=== PATIENT | male | born 1960 | race Caucasian/White ===

== ENCOUNTER 2016-12-04 15:39 | Emergency (ER) | payer OTHER ==
--- NOTE | 2016-12-04 16:24 | ERNOTE ---
Medical Problem HPI - Narrative Date of Service: 12/04/16 - General Chief Complaint: General Assessment Time Seen by Provider: 12/04/16 16:14 Source: patient Exam Limitations: no limitations - Immun/Allergies/Home Medications Immunizations: IMMUNIZATION HX Immunizations Up to Date Yes History of Influenza Vaccine No Hx Pneumococcal Vaccination No Allergies/Adverse Reactions: Allergies No Known Allergies Allergy (Verified 12/04/16 15:50) Home Medications: HOME MEDICATIONS Omeprazole Magnesium [Prilosec Otc] 20 mg PO DAILY 12/29/12 [Last Taken Unknown] Albuterol Sulfate [Proair Hfa] 2 puff IH Q4H PRN 03/08/14 [Last Taken Unknown] Atenolol [Tenormin] 50 mg PO DAILY #30 tablet 03/11/15 [Last Taken Unknown] amLODIPine BESYLATE [Norvasc] 5 mg PO DAILY #30 tablet 03/11/15 [Last Taken Unknown] - History of Present History Narrative: This is a 56-year-old male with a history of tobacco abuse, high blood pressure , high cholesterol. He has no history of diabetes. No family history of early cardiac disease. He comes to the emergency room on the advice of his physician. Last night at work, roughly 3:00 this morning, he had approximately 15 minutes of substernal chest pain associated with nausea and diaphoresis. There was no radiation down his arm. It resolved spontaneously. It is not recurred since then. The patient says that in the past he has had chest pains which radiate down his left arm. They have occurred always while he is at home laying in bed. They always go away within 15 minutes. He has not discussed this with his doctor. The patient has no history of cardiac disease that he is aware of. Again he has been completely asymptomatic for the last 8 hours Timing: gone now Severity: moderate Modifying Factors - (Improves): Present: other - nothing Modifying Factors - (Worsens): Present: other - nothing Review of Systems - Narrative Narrative: Please see history of present illness. The remainder of the review of systems is negative. - Review of Systems Constitutional: Present: diaphoresis, other - questionable diaphoresis. Absent : fever, chills, weakness, fatigue, malaise EYE: Present: no symptoms reported ENT: Present: no symptoms reported Respiratory: Present: no symptoms reported. Absent: shortness of breath, cough Cardiology: Present: chest pain Gastrointestinal/Abdominal: Present: nausea Genitourinary: Present: no symptoms reported Musculoskeletal: Present: no symptoms reported Skin: Present: no symptoms reported Neurological: Present: no symptoms reported Endocrine: Present: no symptoms reported Hematologic/Lymphatic: Present: no symptoms reported Psych: Present: no symptoms reported All Other Systems: All systems neg except as marked - Patient's Past Medical History Patient History - Medical: GERD Patient History - Cardiac/Respiratory: COPD, Hypertension Patient History - Cancer: No Hx of Cancer Patient History - Surgical Procedures: No surgical history Patient History - Other: None - Social History Living Situations: spouse Abuse History: No History of abuse Psych History: No pertinent hx Smoking Status: Current every day smoker Alcohol Use: occasionally Drug Use: none - Immunizations Immunizations Up to Date: Yes Hx Pneumococcal Vaccination: No History of Influenza Vaccine: No Physical Exam - Physical Exam General Appearance: Present: wd/wn, alert, no apparent distress Eye Exam: Normal inspection: bilateral, PERRL: bilateral, EOMI: bilateral Ears, Nose, Throat: Present: normal ENT inspection Neck: Present: normal inspection, nontender Respiratory: Present: no respiratory distress, normal breath sounds, no accessory muscle use, chest nontender, lungs clear Cardiovascular/Chest: Present: regular rate, rhythm, no murmur, normal peripheral pulses Peripheral Pulses: N=norm/S=strong/W=weak/B=bound/A=absent: Radial (R): Normal, Radial (L): Normal Gastrointestinal/Abdominal: Present: normal bowel sounds, nontender, nondistended, soft, no organomegaly Back Exam: Present: normal inspection, normal range of motion, no CVA tenderness Extremity Exam: Present: normal inspection, normal range of motion Neurological Exam: Present: alert, oriented, normal mood/affect, no motor/ sensory deficits Skin Exam: Present: normal color Lymphatic Exam: Present: no adenopathy ED Progress - Results and Orders Patient's Lab Results:: I have reviewed the patient's lab results. - Vital Signs Patient's Vital Signs:: I have reviewed the patient's vital signs. Vital Signs: Vital Signs 12/04/16 12/04/16 15:41 16:00 Temperature 36.6 C Pulse Rate 66 63 Respiratory 16 14 Rate Blood Pressure 138/73 141/63 O2 Sat by Pulse 95 93 Oximetry - EKG EKG: NSR EKG read: Interp. by me EKG Comments: Normal sinus rhythm, normal axis, normal intervals, no ST segment changes no abnormal T waves. Normal EKG. - Progress/Reassessment Chief Complaint: General Assessment Progress:: Unchanged Plan - Plan Plan: The patient had 15 minutes of chest pain at 3:00 this morning. He has no chest pain at present. He has had chest pain in the past which always occurs at rest. He has no elevation of his cardiac enzymes. He does not have acute coronary syndrome. The possibility of unstable angina is considered. The patient has no symptoms when he exerts himself. These symptoms seem to come on rarely. Although it did have a fairly classic description, he has no symptoms at present with a normal EKG and normal labs. I would put him at low probability. He does need outpatient stress testing. I'm discussing this with him. He is aware he needs to follow-up with his family doctor to get this done. I've explained at length to the patient that I'm not giving him a completely clean bill of health with regards to his heart. He knows that he needs to follow-up with his family doctor to get the stress test, and he is aware that if he has any recurrence of any symptoms that he had earlier such as chest pain , nausea, diaphoresis, radiation down his left arm, shortness of breath, or anything else concerning he needs to return immediately to the emergency department. His verbalized understanding. Departure - Departure Clinical Impression: Chest pain of uncertain etiology Disposition: Home self-care Condition: Stable Instructions: Nonspecific Chest Pain, [id number] Additional Instructions: As we discussed the labs and tests done here in the emergency room did not show any significant abnormalities. This is not a completely clean bill of health for your heart. He did talk to her family doctor about getting an outpatient stress test performed. If you have recurrence of any concerning symptoms return immediately to the emergency department. I want you to stop smoking. He did take a single full-size aspirin every day. Referrals: Cherie Martínez FNP [Primary Care Provider] -
[2016-12-04 16:37] LABS: Hematocrit 42.5 % (42.0-52.0); Hemoglobin 15.1 gm/dL (13.5-18.0); Mean Cell Volume 90.8 fl (78-100); Mean Corpuscular Hemoglobin 32.3 pg (27-31); Mean Corpuscular Hgb Conc 35.5 g/dl (32-36); Mean Platelet Volume 10.5 fl (6.0-9.5); Neutrophil # 4.4 K/mm3 (1.3-6.0); Neutrophil % 55.1 % (42-75.0); Platelet Count 218 K/mm3 (150-450); Red Blood Count 4.68 M/mm3 (4.7-6.0); Red Cell Distribution Width 12.3 % (11.5-14.0); White Blood Count 7.9 K/mm3 (4.0-10.5)
[2016-12-04 16:53] LABS: BUN/Creatinine Ratio 15.7 (9.0-21.6); Blood Urea Nitrogen 18 mg/dL (6-23); Calcium * 9.4 mg/dL (7.9-10.9); Carbon Dioxide 26.5 mmol/L (24-32.6); Chloride 101 mmol/L (97-106); Glucose * 136 mg/dL (70-110); Potassium 3.5 mmol/L (3.4-4.6); Sodium 138 mmol/L (132-142)
[2016-12-04 16:54] LABS: Troponin I Less than 0.017 ng/ml (0.00-0.10)
[2016-12-04 17:14] VITALS: BP 121/56
== END 2016-12-04 17:13 | disposition home or self-care (01) ==
LOC: ER 15:39
DX: R07.9 Chest pain, unspecified (principal); Z72.0 Tobacco use; I10 Essential (primary) hypertension; K21.9 Gastro-esophageal reflux disease without esophagitis; J44.9 Chronic obstructive pulmonary disease, unspecified

== ENCOUNTER 2017-03-04 05:21 | Emergency (ER) | payer OTHER ==
--- NOTE | 2017-03-04 05:51 | ERNOTE ---
Chest Pain/Cardiac HPI Time Seen by Provider: 03/04/17 05:44 Source: patient Exam Limitations: no limitations Immunizations: IMMUNIZATION HX Immunizations Up to Date Yes History of Influenza Vaccine No Hx Pneumococcal Vaccination No Allergies/Adverse Reactions: Allergies No Known Allergies Allergy (Verified 03/04/17 05:46) Home Medications: HOME MEDICATIONS Omeprazole Magnesium [Prilosec Otc] 20 mg PO DAILY 12/29/12 [Last Taken Unknown] Albuterol Sulfate [Proair Hfa] 2 puff IH Q4H PRN 03/08/14 [Last Taken Unknown] Atenolol [Tenormin] 50 mg PO DAILY #30 tablet 03/11/15 [Last Taken Unknown] amLODIPine BESYLATE [Norvasc] 5 mg PO DAILY #30 tablet 03/11/15 [Last Taken Unknown] clonazePAM [Klonopin] 1 mg PO BID 03/04/17 [Last Taken Unknown] Narrative: Pt reports left arm aching for one week. Nothing improves the pain, he has trouble sleeping due to the pain. worsened tonight while at work and he presented to the ED after getting off work this morning Timing: constant Severity/Quality: moderate, severe, aching Location: other - left arm Activities at Onset: none Modifying Factors - Improves: Present: nothing Modifying Factors - Worsens: Present: exercise Nitro Today/Relief: no nitro taken today Prior Chest Pain/Cardiac Workup: Reports: prior chest pain - about a month ago and was given medication for anxiety which helps for about 8 hours at a time Review of Systems - Review of Systems Constitutional: Present: diaphoresis - with chest pain a month ago EYE: Present: no symptoms reported ENT: Present: no symptoms reported Respiratory: Absent: shortness of breath Cardiology: Present: chest pain - relieved by anxiety medication, edema - increased over the past month, mostly on weekends. Gastrointestinal/Abdominal: Present: no symptoms reported Genitourinary: Present: no symptoms reported Musculoskeletal: Absent: back pain, neck pain Skin: Absent: rash Neurological: Present: no symptoms reported. Absent: numbness, tingling Endocrine: Present: no symptoms reported Hematologic/Lymphatic: Present: no symptoms reported Psych: Present: no symptoms reported - Patient's Past Medical History Patient History - Medical: Anxiety, GERD Patient History - Cardiac/Respiratory: COPD, Hypertension Patient History - Cancer: No Hx of Cancer Patient History - Surgical Procedures: No surgical history Patient History - Other: None - Family History Mother Family History - Medical: Family History - Cancer: Brain - Social History Living Situations: home Abuse History: No History of abuse Psych History: Hx of Anxiety Smoking Status: Current every day smoker Have you smoked in the past 12 months: Yes Do you dip or chew tobacco: No Alcohol Use: occasionally Drug Use: none - Immunizations Immunizations Up to Date: Yes Hx Pneumococcal Vaccination: No History of Influenza Vaccine: No Physical Exam - Physical Exam General Appearance: Present: wd/wn, alert, no apparent distress Head Exam: Present: normal inspection, no evidence of injury Eye Exam: Normal inspection: bilateral, PERRL: bilateral Neck: Present: normal inspection, nontender, supple, full range of motion Respiratory: Present: no respiratory distress, normal breath sounds, lungs clear Cardiovascular/Chest: Present: regular rate, rhythm, no murmur, normal peripheral pulses Back Exam: Present: normal inspection, normal range of motion, no vertebral tenderness Extremity Exam: Present: normal inspection, non-tender, normal range of motion, no edema Neurological Exam: Present: alert, oriented, normal mood/affect, no motor/ sensory deficits Skin Exam: Present: normal color, warm/dry Lymphatic Exam: Present: no adenopathy ED Progress - Results and Orders Patient's Lab Results:: I have reviewed the patient's lab results. Results and Orders: Laboratory Tests 03/04/17 03/04/17 05:57 05:57 WBC 7.1 Hgb 15.2 Hct 42.6 Plt Count 217 Sodium 139 Potassium 3.6 Chloride 102 Carbon Dioxide 27.5 BUN 16 Creatinine 1.03 Random Glucose 162 H Calcium 9.0 Total Bilirubin 0.3 AST 57 H ALT 143 H Alkaline Phosphatase 72 Troponin I 0.907 H* Total Protein 7.7 Albumin 4.0 - Vital Signs Patient's Vital Signs:: I have reviewed the patient's vital signs. Vital Signs: Vital Signs 03/04/17 05:25 Temperature 36.6 C Pulse Rate 60 Respiratory 12 Rate Blood Pressure 150/76 O2 Sat by Pulse 96 Oximetry - EKG EKG: NSR EKG read: Interp. by me EKG Comments: inverted T waves lead III. - X-Ray X-Ray #1 X-Ray: chest Interpretation: Interp. by me X-ray Comments: Nothing acute - Progress/Reassessment Progress:: Unchanged Progress Note-Subjective: 03/04/17 06:53 Spoke with the patient about the elevated troponin, he agrees with plan to transfer to [facility] for further evaluation. Spoke with Dr. Moseley at [facility] ED, he agrees to accept the patient in transfer and admit to hospitalist if he deems necessary and the hospitalist will decide if cardiology should be consulted. Departure Clinical Impression: Non-STEMI (non-ST elevated myocardial infarction) - Departure Disposition: [facility] Condition: Good Referrals: Yusra Recinos DO [Primary Care Provider] -
[2017-03-04 06:00] LABS: Hematocrit 42.6 % (42.0-52.0); Hemoglobin 15.2 gm/dL (13.5-18.0); Mean Cell Volume 90.1 fl (78-100); Mean Corpuscular Hemoglobin 32.1 pg (27-31); Mean Corpuscular Hgb Conc 35.7 g/dl (32-36); Mean Platelet Volume 10.4 fl (6.0-9.5); Neutrophil # 3.6 K/mm3 (1.3-6.0); Neutrophil % 50.3 % (42-75.0); Platelet Count 217 K/mm3 (150-450); Red Blood Count 4.73 M/mm3 (4.7-6.0); Red Cell Distribution Width 12.1 % (11.5-14.0); White Blood Count 7.1 K/mm3 (4.0-10.5)
[2017-03-04 06:26] LABS: Anion Gap 13.1 mmol/L (6.8-13.8); BUN/Creatinine Ratio 15.5 (9.0-21.6); Bilirubin, Total 0.3 mg/dL (0.0-1.1); Ca. Corrected For Albumin 8.7 mg/dL (8.4-10.2); Carbon Dioxide 27.5 mmol/L (24-32.6); Potassium 3.6 mmol/L (3.4-4.6); Total Protein 7.7 gm/dL (6.2-8.2)
[2017-03-04 06:27] LABS: Troponin I 0.907 ng/ml (0.00-0.10)
[2017-03-04] MEDS ORDERED: ASPIRIN 81 MG TAB.CHEW ONE (06:36)
[2017-03-04] MEDS ORDERED: NITROGLYCERIN 0.4 MG/TAB BTL SL ONE ×2 (06:36→06:38)
[2017-03-04] MEDS ORDERED: ASPIRIN 81 MG TAB.CHEW PO ONE (06:37)
[2017-03-04 06:57] VITALS: BP 101/70
== END 2017-03-04 07:05 | disposition short-term general hospital (02) ==
LOC: ER 05:21
DX: I21.4 Non-ST elevation (NSTEMI) myocardial infarction (principal); F17.200 Nicotine dependence, unspecified, uncomplicated